=== PATIENT | male | born 1985 | race Caucasian/White ===

== ENCOUNTER 2018-10-15 11:56 | Emergency (ER) | payer MEDICARE, OTHER ==
[~2018-10-15] VITALS: Ht 157.5 cm; Wt 89.0 kg
[~2018-10-15 11:56] MED LIST: ALBU18HF; FLOV110 INH; ONDA4TAB14 PO
[2018-10-15 12:05] VITALS: BP 127/78; PULSE 78; RESP 18; Ht 157.5 cm; Wt 89.0 kg
[2018-10-15] MEDS ORDERED: ONDANSETRON (ODT) 4 MG TAB ODT STA (13:07)
--- NOTE | 2018-10-15 15:25 | ERD ---
ER Documentation Chief Complaint Chief Complaint VOMITING TODAY HPI 32-year-old male presenting with abdominal pain and vomiting. Patient states he had this once before and had a colonoscopy was told everything was fine. Patient was seen his primary doctor earlier today and told he had elevated liver enzymes patient reports in the emergency room patient denies any chest pain or shortness of breath. Denies changes in urination or involvement. Patient is on metformin and Latuda. Allergy to penicillin. Surgical history cholecystectomy and appendectomy. Medical history asthma and schizoaffective. Social history denies ROS All systems reviewed and are negative except as per history of present illness. Medications Home Meds Active Scripts Ondansetron (Ondansetron Odt) 4 Mg Tab.rapdis, 4 MG PO Q6H PRN for NAUSEA AND/OR VOMITING, #10 TAB Prov:MARBIN GOMEZ PA-C 10/15/18 Reported Medications Albuterol Sulfate* (Ventolin HFA*) 18 Gm Hfa.aer.ad, 2 PRN S.O.B 09/18/11 Fluticasone Propionate* (Flovent* HFA 110) 12 Gm Inha, 2 INH BID 09/18/11 Allergies Allergies: Uncoded Allergies: PENICILLIN (Adverse Reaction, Severe, HIVES, 09/18/11) PMhx/Soc History of Surgery: No Anesthesia Reaction: No Hx Neurological Disorder: No Hx Respiratory Disorders: No Hx Cardiac Disorders: No Hx Psychiatric Problems: Yes Hx Miscellaneous Medical Probl: Yes (HERNIA) Hx Alcohol Use: No Hx Substance Use: No Hx Tobacco Use: No FmHx Family History: No diabetes, No coronary disease, No other Physical Exam Vitals Vital Signs Date Temp Pulse Resp B/P (MAP) Pulse Ox O2 O2 Flow FiO2 Time Delivery Rate 10/15/18 98.1 78 18 127/78 99 12:05 (94) Physical Exam GENERAL: The patient is well-appearing, well-nourished, in no acute distress HEENT: Atraumatic. Conjunctivae are pink. Pupils equal, round, and reactive to light. There is no scleral icterus. Tympanic membranes clear bilaterally. Oropharynx clear. CHEST: Clear to auscultation bilaterally. There are no rales, wheezes or rhonchi. HEART: Regular rate and rhythm. No murmurs, clicks, rubs or gallops.. ABDOMEN:Soft, nontender and nondistended. Good bowel sounds. No rebound or guarding. No gross peritonitis. No gross organomegaly or masses. Result Diagram: 10/15/18 1327 10/15/18 1327 Results 24 hrs Laboratory Tests Test 10/15/18 13:27 10/15/18 13:30 White Blood Count 8.4 10^3/ul Red Blood Count 6.07 10^6/ul Hemoglobin 16.0 g/dl Hematocrit 50.7 % Mean Corpuscular Volume 83.5 fl Mean Corpuscular Hemoglobin 26.4 pg Mean Corpuscular Hemoglobin Concent 31.6 g/dl Red Cell Distribution Width 14.4 % Platelet Count 247 10^3/UL Mean Platelet Volume 11.0 fl Immature Granulocytes % 0.200 % Neutrophils % 50.0 % Lymphocytes % 41.1 % Monocytes % 6.5 % Eosinophils % 1.2 % Basophils % 1.0 % Nucleated Red Blood Cells % 0.0 /100WBC Immature Granulocytes # 0.020 10^3/ul Neutrophils # 4.2 10^3/ul Lymphocytes # 3.5 10^3/ul Monocytes # 0.6 10^3/ul Eosinophils # 0.1 10^3/ul Basophils # 0.1 10^3/ul Nucleated Red Blood Cells # 0.0 10^3/ul Sodium Level 142 mmol/L Potassium Level 4.4 mmol/L Chloride Level 102 mmol/L Carbon Dioxide Level 27 mmol/L Anion Gap 13 Blood Urea Nitrogen 21 mg/dl Creatinine 0.65 mg/dl Est Glomerular Filtrat Rate mL/min > 60 mL/min Glucose Level 95 mg/dl Calcium Level 10.1 mg/dl Total Bilirubin 0.4 mg/dl Direct Bilirubin 0.00 mg/dl Indirect Bilirubin 0.4 mg/dl Aspartate Amino Transf (AST/SGOT) 169 IU/L Alanine Aminotransferase (ALT/SGPT) 332 IU/L Alkaline Phosphatase 77 IU/L Total Protein 9.0 g/dl Albumin 5.3 g/dl Globulin 3.70 g/dl Albumin/Globulin Ratio 1.43 Lipase 100 U/L Urine Color YELLOW Urine Clarity CLEAR Urine pH 5.0 Urine Specific [place] 1.028 Urine Ketones NEGATIVE mg/dL Urine Nitrite NEGATIVE mg/dL Urine Bilirubin NEGATIVE mg/dL Urine Urobilinogen NEGATIVE mg/dL Urine Leukocyte Esterase NEGATIVE [place]/ul Urine Microscopic RBC 0 /HPF Urine Microscopic WBC 0 /HPF Urine Hemoglobin NEGATIVE mg/dL Urine Glucose NEGATIVE mg/dL Urine Total Protein 1+ mg/dl Current Medications Medications Dose Sig/Gilberto Start Time Status Last (Trade) Ordered Route PRN Stop Time Admin Dose Reason Admin Ondansetron 4 mg ONCE STAT 10/15/18 DC 10/15/18 HCl (Zofran ODT 13:07 10/15/18 13:24 Odt) 13:09 Procedures/MDM DIAGNOSTIC IMAGING REPORT Patient: JENNY DING : 1985 Age: 32 Sex: M MR #: [id number] DOS: 10/15/18 1307 Ordering MD: ANA M GOMEZ PA-C Location: [facility] Room/Bed: PROCEDURE: CT Abdomen and Pelvis without contrast. CLINICAL INDICATION: Abdominal pain. TECHNIQUE: Routine axial tomographic images of the abdomen and pelvis were obtained from the domes the diaphragm to the symphysis pubis. The patient was scanned withoutoral or intravenous contrast. Coronal and sagittal reformatted images were obtained from the axial source images. Images were reviewed on a high-resolution PACS workstation. The total exam CTDI equals 20.30 mGy and the total exam DLP equals 1268.80 mGy-cm. One or more of the following dose reduction techniques were used: Automated exposure control, adjustment of the mA and / or kV according to patient size, or use of iterative reconstruction technique. DICOM images are available. COMPARISON: None. FINDINGS: The visualized portions of the lung bases are clear. Evaluation of the intra-abdominal solid organs is somewhat limited on this noncontrast examination. The liver appears normal in size. There is no intra or extrahepatic biliary dilatation. The gallbladder is surgically absent. The spleen, pancreas, and adrenal glands are unremarkable. The kidneys are symmetric in size. No renal, ureteral, or bladder calculi are identified. No perinephric inflammatory changes are identified. The urinary bladder is grossly unremarkable. The bowel demonstrates normal course and caliber. There is no evidence of bowel obstruction. The appendix is surgically absent. The pelvic organs are grossly unremarkable. No intraperitoneal free fluid, free air, or abscess is светлана ntified. No retroperitoneal, mesenteric, or inguinal lymphadenopathy is identified. The aorta is normal in caliber. There is small bilateral fat containing inguinal hernias. The osseous structures are unremarkable. No significant subcutaneous soft tissue abnormalities are seen. IMPRESSION: 1. Limited noncontrast CT of the abdomen and pelvis. No acute intra-abdominal abnormality identified. No significant interval change. 2. Status post cholecystectomy and appendectomy. MDM: 32-year-old male presenting with vomiting and elevated liver enzymes. Rest of patient's blood work and imaging was within normal limits. Patient has nonspecific transaminitis and is recommended to follow-up with primary care. His abdominal exam is non-concerning I do not feel there is indication for f urther blood work. Patient is told if symptoms change or worsen to return immediately to the ER. All questions answered at discharge Departure Diagnosis: Primary Impression: Vomiting Additional Impression: Transaminitis Condition: Stable Patient Instructions: Vomiting (6Y-Adult), Liver Panel Additional Instructions: FOLLOW UP WITH YOUR PRIMARY CARE PHYSICIAN TOMORROW.Return to this facility if you are not improving as expected. MARBIN GOMEZ PA-C Oct 15, 2018 15:25
== END 2018-10-15 15:14 | disposition home or self-care (01) ==
LOC: FTE 11:56
DX: R11.10 Vomiting, unspecified (principal); R74.0 Nonspecific elevation of levels of transaminase and lactic acid dehydrogenase [LDH]
CPT/HCPCS: 36415; 74176; 80053; 81001; 83690; 85025